=== PATIENT | male | born 2000 | race Asian ===

== ENCOUNTER 2022-04-02 19:59 | Emergency (ER) | payer OTHER ==
[~2022-04-02] VITALS: Ht 167.6 cm; Wt 79.4 kg
[2022-04-02 20:15] VITALS: BP 137/65
--- NOTE | 2022-04-02 20:18 | NUR ---
PT TO CHAIR A
--- NOTE | 2022-04-02 20:36 | NUR ---
PT TO LOBBY
--- NOTE | 2022-04-02 21:28 | NUR ---
EXAMINING BY KT GARCIA
[2022-04-02] MEDS ORDERED: IBUP-2213 PO (22:05)
[2022-04-02] MEDS ORDERED: FAMO-90 PO (22:05)
--- NOTE | 2022-04-02 22:16 | NUR ---
PT REFUSED DIANA SWAB
--- NOTE | 2022-04-02 22:16 | NUR ---
Patient discharged with v/s stable. Written and verbal after care instructions given and explained. Patient alert, oriented and verbalized understanding of instructions. Ambulatory with steady gait. All questions addressed prior to discharge. ID band removed. Patient advised to follow up with PMD. Rx of PEPCID AND IBUPROFEN given. Patient educated on indication of medication including possible reaction and side effects. Opportunity to ask questions provided and answered.
[2022-04-02 22:17] VITALS: BP 123/66
== END 2022-04-02 22:16 | disposition home or self-care (01) ==
LOC: MED 21:06
DX: M94.0 Chondrocostal junction syndrome [Tietze] (principal)
CPT/HCPCS: 71045; 93005; 99283